=== PATIENT | male | born 1965 | race Caucasian/White ===

== ENCOUNTER 2018-04-09 12:58 | Day surgery (SDC) | payer OTHER, SELFPAY ==
[2018-04-09 13:33] VITALS: BP 157/90; PULSE 106; RESP 17; TEMP 36.7; O2SAT 94; BMI 60.7
[2018-04-09] MEDS: SODIUM CHLORIDE 0.9% 1,000 ML 42 ML IV (13:40)
[2018-04-09] MEDS: fentaNYL 250 MCG/5 ML INJ IV (15:10)
[2018-04-09] MEDS: MIDAZOLAM 5 MG/5 ML VIAL IV (15:11)
--- NOTE | 2018-04-09 15:17 | PM.HP.1 ---
History of Present Illness Date Patient Seen: 04/09/18 Time Patient Seen: 15:17 Chief complaint: [id number] COLONOSCOPY Narrative: Heme-positive stools Patient History Medical History Hypertension (Acute) Obesity (Acute) Sleep apnea (Acute) Family & Social History Social History: household members spouse Meds Home Medications Medication Instructions Recorded Confirmed Type hydrochlorothiazide 25 mg PO QDAY #0 09/10/17 04/09/18 History lisinopril 10 mg PO QDAY #0 09/10/17 04/09/18 History Allergies Allergy/AdvReac Type Severity Reaction Status Date / Time acetaminophen [From PERCOCET] Allergy Unknown itchy Verified 04/09/18 13:19 oxycodone [From PERCOCET] Allergy Unknown itchy Verified 04/09/18 13:19 Exam Vital Signs (past 8 hours): - 04/09/18 13:33 Temperature 98.1 F Pulse Rate 106 H Respiratory Rate 17 Blood Pressure 157/90 H Pulse Oximetry 94 Oxygen Delivery Method Room Air Narrative Exam Narrative: Oropharynx free of lesions Chest clear to auscultation and percussion Cardiac exam reveals no S3 or murmur Assessment & Plan Plan: Assessment/Plan Narrative: Heme-positive stools need 1st screening colonoscopy If colonoscopy is negative and patient is anemic, consider upper endoscopy. If not anemic no further workup would be
--- NOTE | 2018-04-09 15:19 | PM.OP.ENDO ---
Operative Date/Time/Diagnoses Date of procedure: 04/09/18 Time of procedure: 15:19 Pre-op diagnosis: See indication and findings Post-op diagnosis: same Procedure & Clinicians Study performed: Colonoscopy Indications: Heme-positive stools Surgeon: Bree St Procedure Notes Procedure in detail: After informed consent was obtained the patient was placed in left lateral decubitus position. Video colonoscope was introduced through rectum slowly advanced the cecum. Preparation was good. On slow withdrawal mucosa was carefully examined. Scope was removed patient tolerated procedure well Blood loss none Complications none Sedation Fentanyl 200 mcg Versed 9 mg IV titration Total sedation time 24 min Findings 1. Scattered sigmoid diverticulosis 2. Otherwise negative colonoscopy to cecum He will need follow-up colonoscopy in 10 years. If at this time he is anemic however would consider doing upper endoscopy for workup of anemia.
[2018-04-09 15:40] VITALS: BP 113/77; PULSE 81; RESP 20; TEMP 36.6; O2SAT 96
== END 2018-04-09 15:53 | disposition home or self-care (01) ==
PROVIDERS: Internal Medicine Gastroenterology; Visit Provider Internal Medicine Gastroenterology
PROC: 0DJD8ZZ Inspection of Lower Intestinal Tract, Via Natural or Artificial Opening Endoscopic (ICD-10-PCS; CPT 45378; principal; 2018-04-09 14:00)
DX: R19.5 Other fecal abnormalities (principal); K57.30 Diverticulosis of large intestine without perforation or abscess without bleeding; I10 Essential (primary) hypertension; E66.9 Obesity, unspecified; G47.33 Obstructive sleep apnea (adult) (pediatric)
CPT/HCPCS: 45378; J2250; J3010

== ENCOUNTER → 2019-08-06 16:02 | Outpatient (CLI) | payer OTHER, SELFPAY ==
--- NOTE | 2019-08-06 | DI.RAD.S_ITS ---
PROCEDURE: XR FOOT LT MIN 3V INDICATIONS: Left Foot Pain TECHNIQUE: 3 views of the foot were acquired. COMPARISON: None. FINDINGS: Bones: No fractures or dislocations. No suspicious bony lesions. Plantar and posterior calcaneal spurring. Diffuse hindfoot and midfoot degenerative sclerosis and spurring. Soft tissues: No tibiotalar joint effusion. Achilles tendon appears normal. IMPRESSION: No fracture. Degenerative changes as above. If the patient's pain or other symptoms persist, consider further evaluation with MRI Dictated by: Gabe Pierre M.D. on 08/06/2019 at 17:04 Approved by: Gabe Pierre M.D. on 08/06/2019 at 17:06
== END ==
PROVIDERS: PCP Nurse Practitioner Family; Visit Provider Nurse Practitioner Family
DX: M79.672 Pain in left foot (principal); M77.32 Calcaneal spur, left foot
CPT/HCPCS: 73630

== ENCOUNTER → 2021-07-03 14:15 | Outpatient (CLI) | payer BC, SELFPAY ==
--- NOTE | 2021-07-03 14:17 | DI.RAD.S_ITS ---
PROCEDURE: XR KNEE RT 3V INDICATIONS: Acute on chronic R knee pain TECHNIQUE: 3 views of the knee were acquired. COMPARISON: None. FINDINGS: Bones: No fractures or dislocations. No suspicious bony lesions. Severe medial mild lateral compartmental joint space narrowing. Moderate patellofemoral joint space narrowing noted with marginal osteophytes present. Soft tissues: No joint effusion. No suspicious soft tissue calcifications. IMPRESSION: Tricompartmental osteoarthritis Approved by: Billy Parker M.D. on 07/03/2021 at 13:47
== END ==
PROVIDERS: PCP Nurse Practitioner Family; Referring Provider Physician Assistant; Visit Provider Physician Assistant
DX: M25.561 Pain in right knee (principal); M17.11 Unilateral primary osteoarthritis, right knee
CPT/HCPCS: 73562

== ENCOUNTER → 2021-09-06 08:54 | Outpatient (CLI) | payer BC, SELFPAY ==
[2021-09-06 10:04] LABS: Add Manual Diff / Slide Review NO; Basophils Absolute Auto 100 /uL (0-100); Basophils Percent Auto 1.1 % (0-2); Eosinophils Absolute Auto 100 /uL (0-450); Eosinophils Percent Auto 2.4 % (2-4); Hematocrit 41.7 % (41-53); Hemoglobin 14.1 g/dL (13.5-17.5); Lymphocytes Absolute Auto 1600 /uL (1100-4500); Lymphocytes Percent Auto 29.1 % (25-40); Mean Corpuscular HGB Conc 33.9 % (30-36); Mean Corpuscular Hemoglobin 28.8 PG (26-34); Monocytes Absolute Auto 600 /uL (0-900); Neutrophils Absolute Auto 3200 /uL (1500-7000); Neutrophils Percent Auto 57.4 % (50-75); Platelet Count 258 X10^3/uL (150-400); Red Cell Distribution Width 14.2 % (11.6-14.8); White Blood Cell Count 5.6 X10^3/uL (4.5-11.0)
[2021-09-06 10:27] LABS: Alanine Aminotransferase 48 IU/L (<50); Albumin 4.2 g/dL (3.5-5.0); Albumin Globulin Ratio 1.5 (1.0-2.8); Alkaline Phosphatase 82 U/L (38-126); Aspartate Aminotransferase 29 IU/L (17-59); BUN Creatinine Ratio 16.7 (6-22); Bilirubin Total 0.8 mg/dL (0.2-1.3); Blood Urea Nitrogen 17 mg/dL (9-20); Calcium 9.2 mg/dL (8.4-10.2); Carbon Dioxide 30 mmol/L (22-32); Chloride 99 mmol/L (98-107); Cholesterol 214 mg/dL (140-199); Estimated Glomerular Filt Rate > 60.0 mL/min (>60); Globulin 2.8 g/dL (1.7-4.1); Glucose 117 mg/dL (70-100); HDL Cholesterol 48 mg/dL (40-60); HEMOLYSIS < 15 (0-50); LDL Cholesterol Calculated 141 mg/dL (<100); Potassium 4.6 mmol/L (3.4-5.1); Sodium 136 mmol/L (137-145); Triglycerides 125 mg/dL (35-150)
[2021-09-06 10:48] LABS: TSH w/ Reflex to FT4 1.47 uIU/mL (0.47-4.68)
[2021-09-17 15:08] LABS: Percent Free Testosterone 2.21 % (1.50-4.20); Testosterone Free 5.87 ng/dL (5.00-21.00); Testosterone Total 265.8 ng/dL (264.0-916.0)
== END ==
PROVIDERS: PCP Internal Medicine; Referring Provider Internal Medicine; Visit Provider Internal Medicine
DX: I10 Essential (primary) hypertension (principal); E66.01 Morbid (severe) obesity due to excess calories; D64.9 Anemia, unspecified
CPT/HCPCS: 36415; 80053; 80061; 83036; 84402; 84403; 84443; 85025

== ENCOUNTER 2022-05-11 11:21 | Emergency (ER) | payer BC, SELFPAY ==
[2022-05-11 11:34] VITALS: BP 141/94; PULSE 91; RESP 19; TEMP 36.7; O2SAT 98
[2022-05-11 12:02] VITALS: PULSE 87; O2SAT 97
[2022-05-11] MEDS: KETOROLAC 30 MG/ML VIAL 15 MG IM (12:28)
--- NOTE | 2022-05-11 12:30 | DI.RAD.S_ITS ---
PROCEDURE: XR LUMBAR SPINE 2-3V INDICATIONS: Back pain TECHNIQUE: 3 views of the lumbar spine were acquired. COMPARISON: None. FINDINGS: Normal lumbar vertebral body height and alignment. Moderate to severe lower lumbar spine degenerative changes characterized by disc height loss with bulky facet hypertrophy and posterior osteophytic ridging of the endplates. IMPRESSION: No acute finding. Moderate to severe lower lumbar degenerative changes. Dictated by: Maximus Price M.D. on 05/11/2022 at 13:24 Approved by: Maximus Price M.D. on 05/11/2022 at 13:25
--- NOTE | 2022-05-11 12:31 | DI.RAD.S_ITS ---
PROCEDURE: XR THORACIC SPINE 3V INDICATIONS: Back pain TECHNIQUE: 3 views of the thoracic spine were acquired. COMPARISON: [facility], J[facility]US, L-SPINE 2-3 VIEWS, 10/31/2017, 11:11. [facility], [facility], XR LUMBAR SPINE 2-3V, 05/11/2022, 12:34. FINDINGS: Bones: No fractures or dislocations. No suspicious bony lesions. Small osteophytes. 12 pairs of ribs are noted, and appear intact where visualized. Soft tissues: No paravertebral stripe thickening. IMPRESSION: No compression fracture identified. [id number] degenerative change at the thoracic spine. Dictated by: Cecil Lovett M.D. on 05/11/2022 at 13:31 Approved by: Cecil Lovett M.D. on 05/11/2022 at 13:33
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
== END 2022-05-11 15:31 | disposition home or self-care (01) ==
PROVIDERS: Emergency Provider Physician Assistant; PCP Internal Medicine
DX: M54.50 Low back pain, unspecified (principal); E66.01 Morbid (severe) obesity due to excess calories
CPT/HCPCS: 72072; 72100; 96372; 99283; J1885

== ENCOUNTER → 2023-12-13 16:06 | Outpatient (CLI) | payer BC, SELFPAY ==
[2023-12-13 17:31] LABS: HEMOLYSIS < 15 (0-50)
[2023-12-13 17:38] LABS: Alanine Aminotransferase 29 IU/L (<50); Albumin 4.2 g/dL (3.5-5.0); Albumin Globulin Ratio 1.2 (1.0-2.8); Alkaline Phosphatase 83 U/L (38-126); Aspartate Aminotransferase 24 IU/L (17-59); Bilirubin Total 0.7 mg/dL (0.2-1.3); Blood Urea Nitrogen 21 mg/dL (9-20); Calcium 8.9 mg/dL (8.4-10.2); Carbon Dioxide 30 mmol/L (22-32); Chloride 102 mmol/L (98-107); Estimated Glomerular Filt Rate > 60 mL/min (>60); Globulin 3.6 g/dL (1.7-4.1); Glucose 95 mg/dL (70-100); Potassium 3.9 mmol/L (3.4-5.1); Sodium 138 mmol/L (137-145); Total Protein 7.8 g/dL (6.3-8.2)
[2023-12-13 18:09] LABS: Prostate Specific Antigen Scrn 1.15 ng/mL (0.1-4.0)
== END ==
PROVIDERS: PCP Internal Medicine; Referring Provider Internal Medicine; Visit Provider Internal Medicine
DX: Z12.5 Encounter for screening for malignant neoplasm of prostate (principal); I10 Essential (primary) hypertension; E66.01 Morbid (severe) obesity due to excess calories; G47.33 Obstructive sleep apnea (adult) (pediatric)
CPT/HCPCS: 36415; 80053; G0103